=== PATIENT | male | born 1975 | race Caucasian/White ===

== ENCOUNTER 2018-05-24 23:30 | Emergency (ER) | payer BC ==
[2018-05-24] MEDS ORDERED: Aspirin 81 MG Tab.Chew PO ONE (23:50)
[2018-05-25 00:11] LABS: CHLORIDE,CL 102 mEq/L (98-106); SODIUM,NA 141 mEq/L (136-145)
--- NOTE | 2018-05-25 00:13 | EDM.PDOC ---
ED HPI GENERAL MEDICAL PROBLEM - General Chief Complaint: Chest Pain Stated Complaint: chest pain Time Seen by Provider: 05/24/18 23:55 Source of Information: Reports: Patient History Limitations: Reports: No Limitations - History of Present Illness INITIAL COMMENTS - FREE TEXT/NARRATIVE: Patient presents with a 90 minute history of right anterior chest pain. States was sitting at the counter at his home when started noting the pain. Had not been exerting himself. [place] sweaty and mildly short of breath. No radiation of the pain. Rated at a 4/10 but is lessening now upon my arrival. No nausea or vomiting. No abdominal pain. No cough. He did not do anything out of his normal routine today, no heavy lifting or straining. Denies heartburn concerns. Is healthy, no chronic medical conditions. Onset: Today, Sudden Duration: Hour(s):, Improving Location: Reports: Chest Quality: Reports: Ache Severity: Mild Improves with: Reports: None Worsens with: Reports: None Associated Symptoms: Reports: Chest Pain, Diaphoresis, Shortness of Breath. Denies: Confusion, Cough, Fever/Chills, Headaches, Loss of Appetite, Nausea/ Vomiting, Seizure Right Chest Pain Score (Numeric/FACES): 4 - Related Data Allergies Allergy/AdvReac Type Severity Reaction Status Date / Time guaifenesin [From Robitussin] Allergy Swelling Verified 05/24/18 23:38 Home Meds: Home Meds . [No Known Home Meds] 09/02/15 [History] Past Medical History HEENT History: Reports: Retinal Detachment - Past Surgical History HEENT Surgical History: Reports: Detached Retina Dermatological Surgical History: Reports: Other (See Below) Social & Family History - Family History Other Cardiac Family History: THINKS GRANDFATHER PASSED FROM ME - Tobacco Use Smoking Status *Q: Never Smoker - Caffeine Use Caffeine Use: Reports: Coffee - Alcohol Use Days Per Week of Alcohol Use: 2 Number of Drinks Per Day: 2 Total Drinks Per Week: 4 - Recreational Drug Use Recreational Drug Use: No ED ROS GENERAL - Review of Systems Review Of Systems: See Below Constitutional: Denies: Fever, Chills, Malaise, Weakness, Fatigue, Decreased Appetite HEENT: Reports: No Symptoms Respiratory: Reports: Shortness of Breath. Denies: Wheezing, Cough Cardiovascular: Reports: Chest Pain. Denies: Edema, Lightheadedness Endocrine: Denies: Fatigue GI/Abdominal: Denies: Abdominal Pain, Black Stool, Bloody Stool, Nausea, Vomiting : Reports: No Symptoms Musculoskeletal: Reports: No Symptoms Skin: Reports: Diaphoresis Neurological: Reports: No Symptoms Psychiatric: Reports: No Symptoms ED EXAM, GENERAL - Physical Exam Exam: See Below Exam Limited By: No Limitations General Appearance: Alert, WD/WN, No Apparent Distress Ears: Normal External Exam, Normal TMs Nose: Normal Inspection, Normal Mucosa, No Blood Throat/Mouth: Normal Inspection, Normal Oropharynx Head: Normocephalic Neck: Normal Inspection, Supple, Non-Tender Respiratory/Chest: No Respiratory Distress, Lungs Clear, Normal Breath Sounds Cardiovascular: Regular Rate, Rhythm GI/Abdominal: Normal Bowel Sounds, Soft, Non-Tender Neurological: Alert, Oriented Skin Exam: Warm, Dry Course - Vital Signs Last Recorded V/S: Last Vital Signs Temp 97.2 F 05/24/18 23:39 Pulse 62 05/25/18 00:06 Resp 20 05/24/18 23:39 BP 126/81 05/25/18 00:06 Pulse Ox 97 05/24/18 23:39 - Orders/Labs/Meds Orders: Active Orders 24 hr Category Date Time Status CXR [Chest 2V] [CR] Stat Exams 05/24/18 23:42 Taken Labs: Laboratory Tests 05/24/18 05/24/18 05/24/18 Range/Units 23:55 23:55 23:55 WBC 6.4 (5.0-10.0) 10^3/uL RBC 4.64 (4.50-6.00) 10^6/uL Hgb 13.7 L (14.0-18.0) g/dL Hct 39.4 L (40.0-54.0) % MCV 84.9 (82.0-94.0) fL MCH 29.5 (27.0-32.0) pg MCHC 34.8 (33.0-38.0) g/dL RDW Coeff of [place] 12.8 (11.0-15.0) % Plt Count 212 (150-400) 10^3/uL Neut % (Auto) 56.8 (35-85) % Lymph % (Auto) 32.7 (10-55) % [place] % (Auto) 7.7 (0-16) % Eos % (Auto) 2.2 (0-5) % Baso % (Auto) 0.6 (0-3) % Neut # (Auto) 3.61 (1.80-7.00) 10^3/uL Lymph # (Auto) 2.08 (1.00-4.80) 10^3/uL [place] # (Auto) 0.49 (0.00-0.80) 10^3/uL Eos # (Auto) 0.14 (0.00-0.45) 10^3/uL Baso # (Auto) 0.04 10^3/uL PT 10.4 (9.7-12.3) SEC INR 1.00 (0.92-1.18) Sodium 141 (136-145) mEq/L Potassium 3.4 L (3.5-5.0) mEq/L Chloride 102 (98-106) mEq/L Carbon Dioxide 27 (21-32) mmol/L BUN 21 H (7-18) mg/dL Creatinine 0.9 (0.7-1.3) mg/dL Est Cr Clr Drug Dosing 120.84 mL/min Estimated GFR (MDRD) > 60 (>=60) mL/min Glucose 135 H D (75-99) mg/dL Calcium 8.7 (8.4-10.1) mg/dL Lactate Dehydrogenase 154 (100-190) U/L Creatine Kinase 140 (35-232) U/L Troponin I < 0.017 (0.00-0.06) ng/mL - Re-Assessments/Exams Free Text/Narrative Re-Assessment/Exam: 05/25/18 00:15 patient states pain is nearly gone now. EKG, chest xray and labs are all normal. Discussed proceeding with stress test next week with Dr. Colvin. He verbalizes understanding. Departure - Departure Time of Disposition: 00:16 Disposition: Home, Self-Care 01 Condition: Good Clinical Impression: Atypical chest pain Referrals: Mario Colvin MD [Primary Care Provider] - Forms: ED Department Discharge Additional Instructions: 1. Rest 2. Aspirin 81 mg daily 3. We will call you once stress test is set up next week with Dr. Colvin 4. Return if chest pain recurs, become short of breath or have any changes. - My Orders Last 24 Hours: My Active Orders 05/24/18 23:42 CXR [Chest 2V] [CR] Stat - Assessment/Plan Last 24 Hours: My Active Orders 05/24/18 23:42 CXR [Chest 2V] [CR] Stat
[2018-05-25 00:23] VITALS: BP 113/75
== END 2018-05-25 00:25 | disposition home or self-care (01) ==
LOC: CC.ED 23:30
DX: R07.89 Other chest pain (principal); Z88.8 Allergy status to other drugs, medicaments and biological substances
CPT/HCPCS: 36415; 71046; 80048; 82550; 83615; 84484; 85025; 85610; 93005; 99285; A9270